=== PATIENT | female | born 1970 | race Caucasian/White ===

== ENCOUNTER 2017-02-14 11:50 | Emergency (ER) | payer OTHER | END 2017-02-14 13:36 | disposition home or self-care (01) | LOC: ER 11:50 | DX: J06.9 Acute upper respiratory infection, unspecified (principal); B37.0 Candidal stomatitis; J02.9 Acute pharyngitis, unspecified; E03.9 Hypothyroidism, unspecified; F32.9 Major depressive disorder, single episode, unspecified; M54.5 Low back pain; Z79.899 Other long term (current) drug therapy; Z79.891 Long term (current) use of opiate analgesic | CPT/HCPCS: 99282 ==

== ENCOUNTER 2017-03-23 10:46 | Emergency (ER) | payer OTHER | END 2017-03-23 12:09 | disposition home or self-care (01) | LOC: ER 10:46 | DX: J06.9 Acute upper respiratory infection, unspecified (principal); R05 Cough; G89.29 Other chronic pain; M54.9 Dorsalgia, unspecified; M54.2 Cervicalgia; E03.9 Hypothyroidism, unspecified; Z98.51 Tubal ligation status; Z79.899 Other long term (current) drug therapy; Z79.891 Long term (current) use of opiate analgesic | CPT/HCPCS: 71020; 99283-25 ==